=== PATIENT | male | born 1950 | race Two or more races ===

== ENCOUNTER 2021-12-23 09:03 | Inpatient (IN) | payer MEDICAID, OTHER ==
[~2021-12-23] VITALS: Ht 170.2 cm; Wt 72.6 kg
[2021-12-23] MEDS ORDERED: EPINEPHrine HCL 250 ML IV ONE (09:13)
[2021-12-23] MEDS ORDERED: AMIODARONE 450mg/250ml AE 250 ML IV ONE (09:14)
[2021-12-23 09:27] VITALS: BP 119/91
[2021-12-23] MEDS ORDERED: LIDOCAINE 2%HCL (LOCAL ANESTH.) INJ 10ml MDV ONE (09:27)
[2021-12-23] MEDS ORDERED: IOHEXOL 350 MG/ML 100ML IJ ONE ×2 (09:27→10:13)
[2021-12-23] MEDS ORDERED: HEPARIN IN NS 1000Units/500mL 1,500 ML ONE (09:27)
[2021-12-23] MEDS ORDERED: HEPARIN DRIP/D5W 100UNITS/ML 250 ML IV SCH (09:30)
[2021-12-23] MEDS ORDERED: HEPARIN SODIUM (PORCINE) 5000 UNITS/ML 1ML VIAL IV ONE ×3 (09:30)
[2021-12-23] MEDS ORDERED: EPINEPHrine HCL 1 MG/10 ML SYRG ONE (09:35)
[2021-12-23] MEDS ORDERED: SODIUM BICARBONATE 8.4% INJ 50ML SYRINGE ONE (09:36)
[2021-12-23] MEDS ORDERED: CALCIUM CHLOR(10%) 100MG/ML 10ML SYRINGE IV ONE ×2 (09:37)
[2021-12-23 09:43] LABS: Basophils # (auto) 0 10 ^3/uL (0-0.2); Basophils % (auto) 0.3 % (0.0-2.0); Eosinophils # (auto) 0.1 10 ^3/uL (0-0.8); Eosinophils % (auto) 1.1 % (0.0-7.0); Hematocrit 33.7 % (41.0-53.0); Hemoglobin 11.3 g/dL (13.5-17.5); Mean Corpuscular Hemoglobin 33.9 pg (28.0-32.0); Mean Corpuscular Hgb Conc. 33.6 g/dL (32.0-36.0); Mean Corpuscular Volume 100.9 fL (80.0-100.0); Neutrophils # (auto) 3.4 10 ^3/uL (1.6-8.6); Neutrophils % (auto) 40.1 % (37.0-80.0); Nucleated Red Blood Cells % 0.5 %; Red Blood Cells 3.34 10^6/uL (4.5-5.90); Red Cell Distribution Width 13.1 % (11.8-14.3); White Blood Cell 8.6 10^3/uL (4.4-10.8)
[2021-12-23 09:46] LABS: Monocytes % (auto) 3.5 % (0.0-12.0)
[2021-12-23 09:47] LABS: Lymphocytes # (auto) 4.7 10 ^3/uL (0.4-5.4); Monocytes # (auto) 0.4 10 ^3/uL (0-1.3)
[2021-12-23] MEDS ORDERED: ATROPINE SULF 1 MG/10ml SYR ONE (09:51)
[2021-12-23] MEDS ORDERED: ANGIOMAX 250 MG VIAL IV ONE (09:51)
[2021-12-23] MEDS ORDERED: MIDAZOLAM HCL 2MG/2ML 2ml VIAL (1mg/ml) ONE (09:52)
[2021-12-23] MEDS ORDERED: fentaNYL CITRATE 100 MCG/2 ML VL ONE (09:52)
[2021-12-23] MEDS ORDERED: SODIUM CHL 0.9% 50 ML ONE (09:52)
[2021-12-23 09:58] LABS: INR 1.67 (0.9-1.15); Partial Thromboplastin Time 30.9 sec (23.6-33.0)
[2021-12-23] MEDS ORDERED: NOREPINEPHRINE 8 MG/250ML KIT 250 ML IV SCH (10:00)
[2021-12-23] MEDS ORDERED: MIDAZOLAM DRIP 50 mg/50mL 50 ML IV SCH (10:00)
[2021-12-23] MEDS ORDERED: PHENYLEPHRINE INJ 40 MG in SODIUM CHL 0.9% 246 ML IV SCH (10:00)
[2021-12-23 10:07] LABS: Albumin 1.5 g/dL (3.4-5.0); BUN/Creatinine Ratio 9.9; Bilirubin, Total 0.3 mg/dL (0.2-1.0); Calcium 9.7 mg/dL (8.5-10.1); Total Protein 3.8 g/dL (6.4-8.2)
[2021-12-23 10:08] LABS: Potassium 2.5 mmol/L (3.5-5.1)
[2021-12-23] MEDS ORDERED: NOREPINEPHRINE 8 MG/250ML KIT 250 ML IV ONE (10:09)
[2021-12-23] MEDS ORDERED: POTASSIUM CHL 20MEQ/100ML 100 ML IV ONE (10:14)
[2021-12-23] MEDS ORDERED: EPTIFIBATIDE INJ (2MG/ML) 10ML VIAL IV ONE ×2 (10:20→10:23)
[2021-12-23 10:28] LABS: Urine Bacteria FEW /hpf (None Seen); Urine Blood TRACE /uL (Negative); Urine Mucus FEW (None Seen); Urine Specific Gravity 1.024 (1.001-1.035); Urine WBC 14 /hpf (0 - 3)
[2021-12-23 10:33] LABS: Magnesium 1.8 mg/dL (1.6-2.6)
[2021-12-23] MEDS ORDERED: ASPirin 325 MG TAB ONE (10:36)
[2021-12-23] MEDS ORDERED: TICAGRELOR 90 MG TAB ONE (10:36)
[2021-12-23] MEDS ORDERED: PHENYLEPHRINE IV 250 ML IV ONE (10:50)
[2021-12-23 10:55] VITALS: BP 119/91
[2021-12-23] MEDS ORDERED: POTASSIUM CHL 20MEQ/100ML 100 ML IV SCH (12:45)
[2021-12-23] MEDS ORDERED: MAGNESIUM SULFATE 1GM/100ML 100 ML IV ONE (12:45)
[2021-12-23] MEDS ORDERED: ATROPINE SULF 1 MG/10ml SYR IV ONE (15:50)
[2021-12-23] MEDS ORDERED: EPINEPHrine HCL 1 MG/10 ML SYRG IV ONE ×2 (15:50→17:44)
[2021-12-23] MEDS ORDERED: SODIUM BICARBONATE 8.4% INJ 50ML SYRINGE IV ONE ×3 (15:50→17:44)
[2021-12-23] MEDS ORDERED: AMIODARONE HCL (50 MG/ ML) 3 ML VIAL IV ONE (15:50)
[2021-12-23] MEDS ORDERED: TICAGRELOR 90 MG TAB PO SCH (22:00)
[2021-12-24] MEDS ORDERED: ASPirin 81 mg TAB PO SCH (10:00)
[2021-12-24] MEDS ORDERED: ENOXAPARIN SOD 40 MG/0.4 ML SYRINGE SC SCH (10:00)
[2022-01-28] MEDS ORDERED: MORPHINE SULFATE INJ 2 MG/ml SYRG IV PRN (15:00)
[2022-01-28] MEDS ORDERED: NITROGLYCERIN 0.4 MG SL TAB SL PRN (15:00)
== END 2021-12-23 11:15 | DRG 174 ==
LOC: ER 09:03 → EDBD 09:03 → CATH 1 09:34 → ICU WEST 09:35 → UNDOADMIN 10:46 → ICU WEST 10:46 → UNDODISIN 17:45
PROVIDERS: ADMIT Internal Medicine Cardiovascular Disease; ATTEND Internal Medicine Cardiovascular Disease
PROC: 5A02210 Assistance with Cardiac Output using Balloon Pump, Continuous (ICD-10-PCS; principal; 2021-12-23)
PROC: 02C03ZZ Extirpation of Matter from Coronary Artery, One Artery, Percutaneous Approach (ICD-10-PCS; 2021-12-23)
PROC: B2111ZZ Fluoroscopy of Multiple Coronary Arteries using Low Osmolar Contrast (ICD-10-PCS; 2021-12-23)
PROC: B2151ZZ Fluoroscopy of Left Heart using Low Osmolar Contrast (ICD-10-PCS; 2021-12-23)
PROC: 3E073PZ Introduction of Platelet Inhibitor into Coronary Artery, Percutaneous Approach (ICD-10-PCS; 2021-12-23)
PROC: 5A12012 Performance of Cardiac Output, Single, Manual (ICD-10-PCS; 2021-12-23)
PROC: 5A2204Z Restoration of Cardiac Rhythm, Single (ICD-10-PCS; 2021-12-23)
PROC: 06HM33Z Insertion of Infusion Device into Right Femoral Vein, Percutaneous Approach (ICD-10-PCS; 2021-12-23)
PROC: 5A1935Z Respiratory Ventilation, Less than 24 Consecutive Hours (ICD-10-PCS; 2021-12-23)
PROC: 0BH17EZ Insertion of Endotracheal Airway into Trachea, Via Natural or Artificial Opening (ICD-10-PCS; 2021-12-23)
PROC: 027034Z Dilation of Coronary Artery, One Artery with Drug-eluting Intraluminal Device, Percutaneous Approach (ICD-10-PCS; 2021-12-23)
DX: I21.02 ST elevation (STEMI) myocardial infarction involving left anterior descending coronary artery (principal); I46.9 Cardiac arrest, cause unspecified; I47.2 Ventricular tachycardia; E11.9 Type 2 diabetes mellitus without complications; R94.39 Abnormal result of other cardiovascular function study; I10 Essential (primary) hypertension; E78.5 Hyperlipidemia, unspecified; I49.01 Ventricular fibrillation; Z20.822 Contact with and (suspected) exposure to COVID-19
CPT/HCPCS: 33967; 36415; 36556; 36600; 71045; 80053; 80061; 81001; 82805; 83036; 83735; 83880; 84443; 85025; 85610; 85730; 86850; 86900; 86901; 92933; 92950; 92960; 93005; 93454; 99152; 99153; 99291; C1874; C9600; G0378; J0171; J2001; J2250; J3480